=== PATIENT | female | born 2000 | race Two or more races ===

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

== ENCOUNTER 2020-05-26 09:23 | Inpatient (IN) | payer BC ==
[2020-05-26] MEDS ORDERED: Sodium Chloride 0.9% 10 ML Syringe FLUSH PRN (13:45)
[2020-05-26] MEDS ORDERED: Sodium Chloride 0.9% 10 ML SDV IV PRN (13:45)
[2020-05-26] MEDS ORDERED: Carboprost Tromethamine 250 MCG/1 ML Amp IM PRN (13:45)
[2020-05-26] MEDS ORDERED: Methylergonovine 0.2 MG/1 ML Amp IM PRN (13:45)
[2020-05-26] MEDS ORDERED: Tranexamic Acid 1,000 MG in Sodium Chloride 0.9% 100 ML IV PRN (13:45)
[2020-05-26] MEDS ORDERED: Butorphanol 1 MG/ML SDV IVPUSH PRN (13:45)
[2020-05-26] MEDS ORDERED: Sodium Chloride 0.9% 2.5 ML Syringe FLUSH PRN (13:45)
[2020-05-26] MEDS ORDERED: Water For Irrigation,Sterile 1,000 ML Container IRR PRN (13:45)
[2020-05-26] MEDS ORDERED: Misoprostol 200 MCG Tab PO PRN (13:45)
[2020-05-26] MEDS ORDERED: Lidocaine 1% 50 ML MDV INJECT PRN (13:45)
[2020-05-26] MEDS ORDERED: Oxytocin/0.9 % Sodium Chloride 30 UNIT/500 ML BAG IV SCH ×2 (13:45→14:00)
[2020-05-26] MEDS ORDERED: Nalbuphine 10 MG/1 ML Vial IVPUSH PRN (13:45)
[2020-05-26] MEDS ORDERED: Terbutaline 1 MG/ML SDV SUBCUT PRN (13:52)
[2020-05-26] MEDS: Misoprostol 25 MCG (1/4 of 100 MCG) Tab VAG PRN ×2 (15:00→20:15)
[2020-05-27] MEDS: Lactated Ringers 1,000 ML IV SCH ×2 (01:30→04:14)
[2020-05-27] MEDS ORDERED: fentaNYL 100 MCG/2 ML SDV ONE (03:50)
[2020-05-27] MEDS ORDERED: Ropivacaine HCl/PF 100 ML ONE (03:51)
--- NOTE | 2020-05-27 04:15 | PCM.PREANE ---
Preanesthetic Assessment - Anesthesia/Transfusion/Family Hx Anesthesia History: No Prior Anesthesia Family History of Anesthesia Reaction: No Transfusion History: No Prior Transfusion(s) Type of Transfusion Reactions: Reports: Unknown - Physical Assessment NPO Status Date: 05/27/20 NPO Status Time: 00:05 Height: 1.63 m Weight: 83.915 kg ASA Class: 2 - Lab Values: Laboratory Last Values COVID-19 (PRADEEP) NEGATIVE (NEGATIVE) 05/26/20 13:36 Blood Type O POSITIVE 05/26/20 13:25 Antibody Screen NEGATIVE 05/26/20 13:25 - Allergies Allergies/Adverse Reactions: Allergies Allergy/AdvReac Type Severity Reaction Status Date / Time Penicillins Allergy Rash Verified 05/26/20 13:51 - Acknowledgements Anesthesia Type Planned: Epidural Pt an Appropriate Candidate for the Planned Anesthesia: Yes Alternatives and Risks of Anesthesia Discussed w Pt/Guardian: Yes Pt/Guardian Understands and Agrees with Anesthesia Plan: Yes PreAnesthesia Questionnaire - Past Health History Medical/Surgical History: Denies Medical/Surgical History HEENT History: Reports: None Cardiovascular History: Reports: None Respiratory History: Reports: None Gastrointestinal History: Reports: None Genitourinary History: Reports: None SADDLE MAKER History: Reports: Musculoskeletal History: Reports: None Neurological History: Reports: None Psychiatric History: Reports: None Endocrine/Metabolic History: Reports: None Hematologic History: Reports: None Immunologic History: Reports: None Oncologic (Cancer) History: Reports: None Dermatologic History: Reports: None - Infectious Disease History Infectious Disease History: Reports: Chicken Pox - Past Surgical History Head Surgeries/Procedures: Reports: None HEENT Surgical History: Reports: None Cardiovascular Surgical History: Reports: None Respiratory Surgical History: Reports: None GI Surgical History: Reports: None Female Surgical History: Reports: Other (See Below) Other Female Surgeries/Procedures: ovarian cyst Endocrine Surgical History: Reports: None Neurological Surgical History: Reports: None Musculoskeletal Surgical History: Reports: None Oncologic Surgical History: Reports: None Dermatological Surgical History: Reports: None - SUBSTANCE USE Smoking Status *Q: Never Smoker Second Hand Smoke Exposure: Yes Recreational Drug Use History: No - HOME MEDS Home Medications: Home Meds No115/Iron/Folic Acid [ 19 Chewable Tablet] 1 tab PO DAILY 11/17/19 [History] - CURRENT (IN HOUSE) MEDS Current Meds: Current Medications Butorphanol Tartrate (Stadol) 1 mg IVPUSH Q1H PRN PRN Reason: Pain Last Admin: 05/27/20 03:24 Dose: 1 mg Documented by: Carboprost Tromethamine (Hemabate Ds) 250 mcg IM ASDIRECTED PRN PRN Reason: Post Hemorrhage Lactated Ringer's (Ringers, Lactated) 1,000 mls @ 150 mls/hr IV ASDIRECTED TANG Last Admin: 05/27/20 04:14 Dose: 150 mls/hr Documented by: Oxytocin/Sodium Chloride (Oxytocin 30 Unit/500 Ml-Ns) 30 unit in 500 mls @ 999 mls/hr IV TITRATE TANG Tranexamic Acid 1,000 mg/ (Sodium Chloride) 110 mls @ 660 mls/hr IV ONETIME PRN PRN Reason: Bleeding Oxytocin/Sodium Chloride (Oxytocin 30 Unit/500 Ml-Ns) 30 unit in 500 mls @ 2 mls/hr IV TITRATE TANG; Protocol Last Titration: 05/27/20 02:01 Dose: 4 munits/min, 4 mls/hr Documented by: Lidocaine HCl (Xylocaine 1%) 50 ml INJECT ONETIME PRN PRN Reason: Laceration repair Misoprostol (Cytotec) 200 mcg PO ONETIME PRN PRN Reason: Post Hemorrhage Misoprostol (Cytotec) 25 mcg VAG Q4H PRN PRN Reason: Cervical Ripening Last Admin: 05/26/20 20:15 Dose: 25 mcg Documented by: Nalbuphine HCl (Nubain) 10 mg IVPUSH Q1H PRN PRN Reason: Pain (severe 7-10) Sodium Chloride (Saline Flush) 10 ml FLUSH ASDIRECTED PRN PRN Reason: Keep Vein Open Sodium Chloride (Saline Flush) 2.5 ml FLUSH ASDIRECTED PRN PRN Reason: Keep Vein Open Sodium Chloride (Normal Saline) 10 ml IV ASDIRECTED PRN PRN Reason: IV Use Sterile Water (Sterile Water For Irrigation) 1,000 ml IRR ASDIRECTED PRN PRN Reason: delivery Terbutaline Sulfate (Brethine) 0.25 mg SUBCUT ASDIRECTED PRN PRN Reason: Tacysystole Discontinued Medications Fentanyl (Sublimaze) Confirm Administered Dose 100 mcg .ROUTE .STK-MED ONE Stop: 05/27/20 03:51 Ropivacaine (Naropin 0.2%) Confirm Administered Dose 100 mls @ as directed .ROUTE .[facility] Stop: 05/27/20 03:52
--- NOTE | 2020-05-27 04:18 | PCM.PRNOTE ---
- Free Text/Narrative Note: Anes Note Patient requests epidural for L&D. Sitting position, level L3-L4 midline approach. Sterile technique, chloraprep scrub to lumbar area. Sterile fenestrated drape applied. Epidural space easily achieved using SUKHJINDER technique. SUKHJINDER at 4 cm. Cath threaded 5 cm with ease. Cath secured a t 11 cm at skin using sterile clear adhesive dressing. Test 0402 3 cc 1.5% lido with epi negative. 0405 Load 10 cc 0.2% ropivicaine with 1 mcg cc fentanyl in slow divided doses. 0409 Pump started with 90 cc same solution. Rate is 8 cc hr with 6 cc q 20 min prn bolus. 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
[2020-05-27] MEDS ORDERED: Docusate Sodium 100 MG Cap PO PRN (09:47)
[2020-05-27] MEDS ORDERED: Witch Hazel Medicated Pads 40/Jar TOP PRN (09:47)
[2020-05-27] MEDS ORDERED: oxyCODONE 5 MG Tab PO PRN (09:47)
[2020-05-27] MEDS ORDERED: Lanolin 100% Cream 7 GM Tube TOP PRN (09:47)
[2020-05-27] MEDS ORDERED: Benzocaine/Menthol 20%-0.5% Spray 78 GM Cannister TOP PRN (09:47)
[2020-05-27] MEDS ORDERED: Bisacodyl 10 MG Supp RECTAL PRN (09:47)
--- NOTE | 2020-05-27 09:48 | PCM.DEL ---
<Lopez Looney - Last Filed: 05/27/20 09:43> L & D Note - General Info Date of Service: 05/27/20 Mother's Due Date: 06/16/20 (Was induced at this time due to onset of preeclampsia) - Delivery Note Labor: Induced by Oxytocin Cervical Ripening Method: Misoprostil, Oxytocin Delivery Outcome: Livebirth Delivery Method: Spontaneous Vaginal Delivery-Single Infant Delivery Mode: Spontaneous Presentation: Right Occiput Anterior (SCAR) Nuchal Cord: None Prep: Povidone-Iodine (Betadine Anesthesia Type: Epidural Amniotic Fluid Description: Clear Episiotomy Type: None Laceration: 1st Degree, Labial, Other (Small left labia minora tear, not repaired because it was hemostatic. ) Suture type: Vicryl Suture size: 2-0 Placenta: Intact, Spontaneous Cord: 3 Vessels Estimated Blood Loss: 500 Resuscitation Needed: No : Suctioned, Warmer Used Score 1 min: 7 Score 5 min: 9 Second Stage Interventions: Reports: Encouragement Given, Pushing Effectively Delivery Comments (Free Text/Narrative):: Baby came within about 10 pushes and placenta was delivered intact within two minutes thereafter. Did receive 800 mg of cytotec per rectum to aid with uterine tone/clamping. Baby delivered by Dr. Williams Sebastian, assisted by medical student (LOPEZ LOONEY). - Patient Data Weight - Most Recent: 83.915 kg Lab Results Last 24 Hours: Laboratory Results - last 24 hr 05/26/20 05/26/20 Range/Units 13:25 13:36 COVID-19 (PRADEEP) NEGATIVE (NEGATIVE) Blood Type O POSITIVE Antibody Screen NEGATIVE Med Orders - Current: Current Medications Butorphanol Tartrate (Stadol) 1 mg IVPUSH Q1H PRN PRN Reason: Pain Last Admin: 05/27/20 03:24 Dose: 1 mg Documented by: Carboprost Tromethamine (Hemabate Ds) 250 mcg IM ASDIRECTED PRN PRN Reason: Post Hemorrhage Lactated Ringer's (Ringers, Lactated) 1,000 mls @ 150 mls/hr IV ASDIRECTED TANG Last Admin: 05/27/20 04:14 Dose: 150 mls/hr Documented by: Oxytocin/Sodium Chloride (Oxytocin 30 Unit/500 Ml-Ns) 30 unit in 500 mls @ 999 mls/hr IV TITRATE TANG Tranexamic Acid 1,000 mg/ (Sodium Chloride) 110 mls @ 660 mls/hr IV ONETIME PRN PRN Reason: Bleeding Oxytocin/Sodium Chloride (Oxytocin 30 Unit/500 Ml-Ns) 30 unit in 500 mls @ 2 mls/hr IV TITRATE TANG; Protocol Last Titration: 05/27/20 08:23 Dose: 10 munits/min, 10 mls/hr Documented by: Lidocaine HCl (Xylocaine 1%) 50 ml INJECT ONETIME PRN PRN Reason: Laceration repair Misoprostol (Cytotec) 200 mcg PO ONETIME PRN PRN Reason: Post Hemorrhage Misoprostol (Cytotec) 25 mcg VAG Q4H PRN PRN Reason: Cervical Ripening Last Admin: 05/26/20 20:15 Dose: 25 mcg Documented by: Nalbuphine HCl (Nubain) 10 mg IVPUSH Q1H PRN PRN Reason: Pain (severe 7-10) Sodium Chloride (Saline Flush) 10 ml FLUSH ASDIRECTED PRN PRN Reason: Keep Vein Open Sodium Chloride (Saline Flush) 2.5 ml FLUSH ASDIRECTED PRN PRN Reason: Keep Vein Open Sodium Chloride (Normal Saline) 10 ml IV ASDIRECTED PRN PRN Reason: IV Use Sterile Water (Sterile Water For Irrigation) 1,000 ml IRR ASDIRECTED PRN PRN Reason: delivery Terbutaline Sulfate (Brethine) 0.25 mg SUBCUT ASDIRECTED PRN PRN Reason: Tacysystole Discontinued Medications Fentanyl (Sublimaze) Confirm Administered Dose 100 mcg .ROUTE .STK-MED ONE Stop: 05/27/20 03:51 Ropivacaine (Naropin 0.2%) Confirm Administered Dose 100 mls @ as directed .ROUTE .STK-MED ONE Stop: 05/27/20 03:52 <Jaz Kramer - Last Filed: 05/27/20 10:04> L & D Note - Delivery Note Placenta: Abnormal (delivered 45 seconds after delivery of baby, suspected abruption) Resuscitation Needed: Yes : Stimulated Delivery Comments (Free Text/Narrative):: Placenta delivered 45 seconds after delivery of baby. - General Info Date of Service: 05/27/20 - Patient Data Lab Results Last 24 Hours: Laboratory Results - last 24 hr 05/26/20 05/26/20 Range/Units 13:25 13:36 COVID-19 (PRADEEP) NEGATIVE (NEGATIVE) Blood Type O POSITIVE Antibody Screen NEGATIVE Med Orders - Current: Current Medications Acetaminophen (Tylenol Extra Strength) 1,000 mg PO Q6H PRN PRN Reason: Pain Benzocaine/Menthol (Dermoplast Pain Relief 20%-0.5% [place]) 78 gm TOP ASDIRECTED PRN PRN Reason: Perineal Comfort Measure Bisacodyl (Dulcolax) 10 mg RECTAL ONETIME PRN PRN Reason: Constipation Butorphanol Tartrate (Stadol) 1 mg IVPUSH Q1H PRN PRN Reason: Pain Last Admin: 05/27/20 03:24 Dose: 1 mg Documented by: Carboprost Tromethamine (Hemabate Ds) 250 mcg IM ASDIRECTED PRN PRN Reason: Post Hemorrhage Docusate Sodium (Colace) 100 mg PO BID PRN PRN Reason: Constipation Emollient Ointment (Lansinoh Hpa) 0 gm TOP ASDIRECTED PRN PRN Reason: Sore Nipples Lactated Ringer's (Ringers, Lactated) 1,000 mls @ 150 mls/hr IV ASDIRECTED TANG Last Admin: 05/27/20 04:14 Dose: 150 mls/hr Documented by: Oxytocin/Sodium Chloride (Oxytocin 30 Unit/500 Ml-Ns) 30 unit in 500 mls @ 999 mls/hr IV TITRATE TANG Tranexamic Acid 1,000 mg/ (Sodium Chloride) 110 mls @ 660 mls/hr IV ONETIME PRN PRN Reason: Bleeding Oxytocin/Sodium Chloride (Oxytocin 30 Unit/500 Ml-Ns) 30 unit in 500 mls @ 2 mls/hr IV TITRATE TANG; Protocol Last Titration: 05/27/20 08:23 Dose: 10 munits/min, 10 mls/hr Documented by: Ibuprofen (Motrin) 800 mg PO Q8H PRN PRN Reason: Pain Lidocaine HCl (Xylocaine 1%) 50 ml INJECT ONETIME PRN PRN Reason: Laceration repair Misoprostol (Cytotec) 200 mcg PO ONETIME PRN PRN Reason: Post Hemorrhage Last Admin: 05/27/20 09:38 Dose: 800 mcg Documented by: Misoprostol (Cytotec) 25 mcg VAG Q4H PRN PRN Reason: Cervical Ripening Last Admin: 05/26/20 20:15 Dose: 25 mcg Documented by: Nalbuphine HCl (Nubain) 10 mg IVPUSH Q1H PRN PRN Reason: Pain (severe 7-10) Oxycodone HCl (Oxycodone) 5 mg PO Q2H PRN PRN Reason: Pain Sodium Chloride (Saline Flush) 10 ml FLUSH ASDIRECTED PRN PRN Reason: Keep Vein Open Sodium Chloride (Saline Flush) 2.5 ml FLUSH ASDIRECTED PRN PRN Reason: Keep Vein Open Sodium Chloride (Normal Saline) 10 ml IV ASDIRECTED PRN PRN Reason: IV Use Sterile Water (Sterile Water For Irrigation) 1,000 ml IRR ASDIRECTED PRN PRN Reason: delivery Terbutaline Sulfate (Brethine) 0.25 mg SUBCUT ASDIRECTED PRN PRN Reason: Tacysystole Witch Marcy (Tucks) 1 pad TOP ASDIRECTED PRN PRN Reason: comfort care Discontinued Medications Fentanyl (Sublimaze) Confirm Administered Dose 100 mcg .ROUTE .STK-MED ONE Stop: 05/27/20 03:51 Ropivacaine (Naropin 0.2%) Confirm Administered Dose 100 mls @ as directed .ROUTE .[employer]-MED ONE Stop: 05/27/20 03:52 - Problem List & Annotations (1) Vaginal delivery SNOMED Code(s): 062774707 Code(s): O80 - ENCOUNTER FOR FULL-TERM UNCOMPLICATED DELIVERY Status: Acute Current Visit: Yes (2) Preeclampsia SNOMED Code(s): 501561583 Code(s): O14.90 - UNSPECIFIED PRE-ECLAMPSIA, UNSPECIFIED TRIMESTER Status: Acute Current Visit: Yes - Problem List Review Problem List Initiated/Reviewed/Updated: Yes - My Orders Last 24 Hours: My Active Orders 05/27/20 09:47 Notify Provider Vital Signs [RC] ASDIRECTED Acetaminophen [Tylenol Extra Strength] 1,000 mg PO Q6H PRN Benzocaine/Menthol [Dermoplast Pain Relief 20%-0.5% [place]] 78 gm TOP ASDIRECTED PRN Docusate Sodium [Colace] 100 mg PO BID PRN Ibuprofen [Motrin] 800 mg PO Q8H PRN Lanolin [Lansinoh HPA] See Dose Instructions TOP ASDIRECTED PRN bisacodyL [Dulcolax] 10 mg RECTAL ONETIME PRN oxyCODONE 5 mg PO Q2H PRN witch Marcy [Tucks] 1 pad TOP ASDIRECTED PRN Breast Pump [WOMSER] Per Unit Routine 05/27/20 09:48 Patient Status [ADT] Routine May Shower [RC] ASDIRECTED Up ad Macey [RC] ASDIRECTED Vital Signs [RC] PER UNIT ROUTINE Assess Lochia [WOMSER] Per Unit Routine Assess Uterine Involution [WOMSER] Per Unit Routine Peripheral IV Discontinue [OM.PC] Routine 05/27/20 09:50 Ice Therapy [OM.PC] Per Unit Routine Perineal Care [OM.PC] Per Unit Routine Sitz Bath [OM.PC] Per Unit Routine 05/27/20 09:51 Cooling Warming Measures [RC] ASDIRECTED 05/27/20 Lunch Regular Diet [DIET] 05/28/20 05:11 HEMOGLOBIN/HEMATOCRIT,HH [HEME] Timed - Assessment Assessment:: 20yo s/p at 37w1d - Plan Plan:: Admit to unit for routine care. Continue to monitor blood pressures due to preeclampsia. Placenta sent to pathology due to preeclampsia and suspected abruption. Will follow-up left ovarian cyst .
--- NOTE | 2020-05-27 12:30 | OR ---
SURGEON: Jaz Kramer MD DATE OF PROCEDURE: 05/27/2020 PREOPERATIVE DIAGNOSES: 1. A 20-year-old G2, P0-0-1-0, at 37 weeks 0 days' gestation. 2. Induction of labor for preeclampsia. 3. A 7 cm left ovarian cyst. 4. Left ventricle echogenic focus with negative quad screen. 5. GBS negative. POSTOPERATIVE DIAGNOSES: 1. A 20-year-old G2, P1-0-1-1, status post spontaneous vaginal delivery at 37 and 1. 2. Induction of labor for preeclampsia. 3. Left ovarian cyst. 4. Left ventricle echogenic focus with negative quad screen. 5. GBS negative. PROCEDURE: Spontaneous vaginal delivery and repair of first-degree perineal laceration. CONSTRUCTION LABORER: Lopez Looney, medical student. ANESTHESIA: Epidural. ESTIMATED BLOOD LOSS: 500 mL. MEDICATIONS: 800 mcg of misoprostol. FINDINGS: Live male infant in cephalic presentation. scores of 7 and 9 at one and five minutes respectively. Weight 2870 g. Placenta delivered intact with 3- vessel cord 45 seconds after delivery of baby with suspected abruption. First- degree perineal laceration along with left labial laceration. INDICATIONS: This is a 20-year-old G2, P0-0-1-0, who presented at 37 weeks 0 days' gestation for induction of labor due to preeclampsia. Upon presentation, her cervix was found to be 1 to 2 cm dilated. Induction of labor was begun with Cytotec. Approximately 3 cm dilated. The patient was shirley, and Pitocin was started. At 4 cm dilated, she received an epidural for pain control. She progressed to complete cervical dilation and began pushing. I was called to the room after an 11-minute deceleration to the 90s. DESCRIPTION OF PROCEDURE: I arrived to the room with heart tones in the 150s and having been recovered after placing the patient in the left lateral position. Artificial rupture of membranes occurred with clear fluid noted. Over the next 5 contractions, the patient pushed and delivered a live male infant. The head was delivered followed quickly by the shoulders and the remainder of the body. The infant was placed on the maternal abdomen. After approximately 45 seconds, the placenta then delivered spontaneously intact with a 3-vessel cord. At 60 seconds post delivery, the cord was clamped and cut. The perineum was inspected, and a first-degree perineal and a left labial laceration were noted. The perineal laceration was repaired to anatomy and hemostasis with 2-0 Vicryl suture. The left labial laceration was hemostatic without repair. Uterine atony was noted in the lower uterine segment. A bimanual exam was performed to evacuate clot from the uterus. 800 mcg of misoprostol was placed in the rectum. Subsequent increase in uterine tone was noted with decreased bleeding. The patient and infant tolerated the delivery well. [id number] / MODL /[id number] MTDD
[2020-05-27] MEDS: Acetaminophen 500 MG Tab PO PRN ×2 (13:13→18:45)
[2020-05-27] MEDS: Ibuprofen 800 MG Tab PO PRN ×2 (13:13→21:01)
[2020-05-28] MEDS: Acetaminophen 500 MG Tab PO PRN (06:02)
--- NOTE | 2020-05-28 07:16 | PCM.PNPP ---
<Lopez Looney - Last Filed: 05/28/20 07:11> - General Info Date of Service: 05/28/20 Functional Status: Reports: Pain Controlled, Tolerating Diet, Ambulating, Urinating - Review of Systems General: Reports: No Symptoms, Other (She is in no pain, denies fever or chills. Hgb and Hct slightly decreased to 10.5 and 31.7) HEENT: Reports: No Symptoms Pulmonary: Reports: No Symptoms, Other (Denies shortness of breath, cough or other symptoms) Cardiovascular: Reports: No Symptoms Gastrointestinal: Reports: No Symptoms Genitourinary: Reports: No Symptoms Musculoskeletal: Reports: No Symptoms Skin: Reports: No Symptoms Neurological: Reports: No Symptoms Psychiatric: Reports: No Symptoms - General Info Date of Service: 05/28/20 - Patient Data Vital Signs - Most Recent: Last Vital Signs Temp 36.6 C 05/28/20 04:00 Pulse 72 05/28/20 04:00 Resp 16 05/28/20 04:00 BP 133/74 05/28/20 04:00 Pulse Ox 98 05/28/20 04:00 Weight - Most Recent: 83.915 kg Lab Results - Last 24 Hours: Laboratory Results - last 24 hr 05/28/20 Range/Units 05:20 Hgb 10.5 L (12.0-16.0) g/dL Hct 31.7 L (36.0-46.0) % Med Orders - Current: Current Medications Acetaminophen (Tylenol Extra Strength) 1,000 mg PO Q6H PRN PRN Reason: Pain Last Admin: 05/28/20 06:02 Dose: 1,000 mg Documented by: Benzocaine/Menthol (Dermoplast Pain Relief 20%-0.5% [place]) 78 gm TOP ASDIRECTED PRN PRN Reason: Perineal Comfort Measure Last Admin: 05/27/20 13:15 Dose: 1 canister Documented by: Bisacodyl (Dulcolax) 10 mg RECTAL ONETIME PRN PRN Reason: Constipation Butorphanol Tartrate (Stadol) 1 mg IVPUSH Q1H PRN PRN Reason: Pain Last Admin: 05/27/20 03:24 Dose: 1 mg Documented by: Carboprost Tromethamine (Hemabate Ds) 250 mcg IM ASDIRECTED PRN PRN Reason: Post Hemorrhage Docusate Sodium (Colace) 100 mg PO BID PRN PRN Reason: Constipation Last Admin: 05/27/20 13:13 Dose: 100 mg Documented by: Emollient Ointment (Lansinoh Hpa) 0 gm TOP ASDIRECTED PRN PRN Reason: Sore Nipples Last Admin: 05/27/20 13:14 Dose: 7 gm Documented by: Lactated Ringer's (Ringers, Lactated) 1,000 mls @ 150 mls/hr IV ASDIRECTED TANG Last Admin: 05/27/20 04:14 Dose: 150 mls/hr Documented by: Oxytocin/Sodium Chloride (Oxytocin 30 Unit/500 Ml-Ns) 30 unit in 500 mls @ 999 mls/hr IV TITRATE TANG Tranexamic Acid 1,000 mg/ (Sodium Chloride) 110 mls @ 660 mls/hr IV ONETIME PRN PRN Reason: Bleeding Oxytocin/Sodium Chloride (Oxytocin 30 Unit/500 Ml-Ns) 30 unit in 500 mls @ 2 mls/hr IV TITRATE TANG; Protocol Last Titration: 05/27/20 08:23 Dose: 10 munits/min, 10 mls/hr Documented by: Ibuprofen (Motrin) 800 mg PO Q8H PRN PRN Reason: Pain Last Admin: 05/27/20 21:01 Dose: 800 mg Documented by: Lidocaine HCl (Xylocaine 1%) 50 ml INJECT ONETIME PRN PRN Reason: Laceration repair Misoprostol (Cytotec) 200 mcg PO ONETIME PRN PRN Reason: Post Hemorrhage Last Admin: 05/27/20 09:38 Dose: 800 mcg Documented by: Misoprostol (Cytotec) 25 mcg VAG Q4H PRN PRN Reason: Cervical Ripening Last Admin: 05/26/20 20:15 Dose: 25 mcg Documented by: Nalbuphine HCl (Nubain) 10 mg IVPUSH Q1H PRN PRN Reason: Pain (severe 7-10) Oxycodone HCl (Oxycodone) 5 mg PO Q2H PRN PRN Reason: Pain Sodium Chloride (Saline Flush) 10 ml FLUSH ASDIRECTED PRN PRN Reason: Keep Vein Open Sodium Chloride (Saline Flush) 2.5 ml FLUSH ASDIRECTED PRN PRN Reason: Keep Vein Open Sodium Chloride (Normal Saline) 10 ml IV ASDIRECTED PRN PRN Reason: IV Use Sterile Water (Sterile Water For Irrigation) 1,000 ml IRR ASDIRECTED PRN PRN Reason: delivery Terbutaline Sulfate (Brethine) 0.25 mg SUBCUT ASDIRECTED PRN PRN Reason: Tacysystole Gregorio Vidal (Tucks) 1 pad TOP ASDIRECTED PRN PRN Reason: comfort care Last Admin: 05/27/20 13:14 Dose: 1 tub Documented by: Discontinued Medications Fentanyl (Sublimaze) Confirm Administered Dose 100 mcg .ROUTE .STK-MED ONE Stop: 05/27/20 03:51 Ropivacaine (Naropin 0.2%) Confirm Administered Dose 100 mls @ as directed .ROUTE .STK-MED ONE Stop: 05/27/20 03:52 - Interaction Disposition, : to Nursery Infant Feeding: Bottle Fed Support Person: - Recovery Exam Fundal Tone: Firm Fundal Level: 2 Fingerbreadths Below Umbilicus Fundal Placement: Midline Lochia Amount: Scant Lochia Color: Rubra/Red Perineum Description: Other (see below) Other Perinuem Description: Left labial Episiotomy/Laceration: Approximated Bladder Status: Voiding Urinary Elimination: Voided - Problem List Review Problem List Initiated/Reviewed/Updated: Yes - Assessment Assessment:: 20yo s/p at 37w1d - Plan Plan:: -Continue routine care. -Continue to monitor blood pressures due to preeclampsia. -Placenta sent to pathology due to preeclampsia and suspected abruption. -Will follow-up left ovarian cyst . -Prepare for discharge to home today. <Jaz Kramer - Last Filed: 05/28/20 08:11> - General Info Subjective Update: Patient denies preeclampisa symptoms. Bleeding light. Pain well controlled. - Patient Data Vital Signs - Most Recent: Last Vital Signs Temp 36.0 C L 05/28/20 07:36 Pulse 66 05/28/20 07:36 Resp 12 05/28/20 07:36 BP 135/89 05/28/20 07:36 Pulse Ox 95 05/28/20 07:36 Lab Results - Last 24 Hours: Laboratory Results - last 24 hr 05/28/20 Range/Units 05:20 Hgb 10.5 L (12.0-16.0) g/dL Hct 31.7 L (36.0-46.0) % Med Orders - Current: Current Medications Acetaminophen (Tylenol Extra Strength) 1,000 mg PO Q6H PRN PRN Reason: Pain Last Admin: 05/28/20 06:02 Dose: 1,000 mg Documented by: Benzocaine/Menthol (Dermoplast Pain Relief 20%-0.5% [place]) 78 gm TOP ASDIRECTED PRN PRN Reason: Perineal Comfort Measure Last Admin: 05/27/20 13:15 Dose: 1 canister Documented by: Bisacodyl (Dulcolax) 10 mg RECTAL ONETIME PRN PRN Reason: Constipation Butorphanol Tartrate (Stadol) 1 mg IVPUSH Q1H PRN PRN Reason: Pain Last Admin: 05/27/20 03:24 Dose: 1 mg Documented by: Carboprost Tromethamine (Hemabate Ds) 250 mcg IM ASDIRECTED PRN PRN Reason: Post Hemorrhage Docusate Sodium (Colace) 100 mg PO BID PRN PRN Reason: Constipation Last Admin: 05/27/20 13:13 Dose: 100 mg Documented by: Emollient Ointment (Lansinoh Hpa) 0 gm TOP ASDIRECTED PRN PRN Reason: Sore Nipples Last Admin: 05/27/20 13:14 Dose: 7 gm Documented by: Lactated Ringer's (Ringers, Lactated) 1,000 mls @ 150 mls/hr IV ASDIRECTED TANG Last Admin: 05/27/20 04:14 Dose: 150 mls/hr Documented by: Oxytocin/Sodium Chloride (Oxytocin 30 Unit/500 Ml-Ns) 30 unit in 500 mls @ 999 mls/hr IV TITRATE TANG Tranexamic Acid 1,000 mg/ (Sodium Chloride) 110 mls @ 660 mls/hr IV ONETIME PRN PRN Reason: Bleeding Oxytocin/Sodium Chloride (Oxytocin 30 Unit/500 Ml-Ns) 30 unit in 500 mls @ 2 mls/hr IV TITRATE TANG; Protocol Last Titration: 05/27/20 08:23 Dose: 10 munits/min, 10 mls/hr Documented by: Ibuprofen (Motrin) 800 mg PO Q8H PRN PRN Reason: Pain Last Admin: 05/27/20 21:01 Dose: 800 mg Documented by: Lidocaine HCl (Xylocaine 1%) 50 ml INJECT ONETIME PRN PRN Reason: Laceration repair Misoprostol (Cytotec) 200 mcg PO ONETIME PRN PRN Reason: Post Hemorrhage Last Admin: 05/27/20 09:38 Dose: 800 mcg Documented by: Misoprostol (Cytotec) 25 mcg VAG Q4H PRN PRN Reason: Cervical Ripening Last Admin: 05/26/20 20:15 Dose: 25 mcg Documented by: Nalbuphine HCl (Nubain) 10 mg IVPUSH Q1H PRN PRN Reason: Pain (severe 7-10) Oxycodone HCl (Oxycodone) 5 mg PO Q2H PRN PRN Reason: Pain Sodium Chloride (Saline Flush) 10 ml FLUSH ASDIRECTED PRN PRN Reason: Keep Vein Open Sodium Chloride (Saline Flush) 2.5 ml FLUSH ASDIRECTED PRN PRN Reason: Keep Vein Open Sodium Chloride (Normal Saline) 10 ml IV ASDIRECTED PRN PRN Reason: IV Use Sterile Water (Sterile Water For Irrigation) 1,000 ml IRR ASDIRECTED PRN PRN Reason: delivery Terbutaline Sulfate (Brethine) 0.25 mg SUBCUT ASDIRECTED PRN PRN Reason: Tacysystole Witch Marcy (Tucks) 1 pad TOP ASDIRECTED PRN PRN Reason: comfort care Last Admin: 05/27/20 13:14 Dose: 1 tub Documented by: Discontinued Medications Fentanyl (Sublimaze) Confirm Administered Dose 100 mcg .ROUTE .STK-MED ONE Stop: 05/27/20 03:51 Ropivacaine (Naropin 0.2%) Confirm Administered Dose 100 mls @ as directed .ROUTE .STK-MED ONE Stop: 05/27/20 03:52 - Infant Interaction Feeding: Breastfed Infant; Nursed Well - Exam General: Alert, Oriented Neck: Supple Lungs: Normal Respiratory Effort GI/Abdominal Exam: Soft, Non-Tender Extremities: No Pedal Edema Skin: Warm, Dry, Intact Neurological: No New Focal Deficit Psy/Mental Status: Alert, Normal Affect, Normal Mood - Problem List & Annotations (1) Vaginal delivery SNOMED Code(s): 654280004 Code(s): O80 - ENCOUNTER FOR FULL-TERM UNCOMPLICATED DELIVERY Status: Acute Current Visit: Yes (2) Preeclampsia SNOMED Code(s): 158904959 Code(s): O14.90 - UNSPECIFIED PRE-ECLAMPSIA, UNSPECIFIED TRIMESTER Status: Acute Current Visit: Yes - My Orders Last 24 Hours: My Active Orders 05/27/20 09:47 Acetaminophen [Tylenol Extra Strength] 1,000 mg PO Q6H PRN Benzocaine/Menthol [Dermoplast Pain Relief 20%-0.5% [place]] 78 gm TOP ASDIRECTED PRN Docusate Sodium [Colace] 100 mg PO BID PRN Ibuprofen [Motrin] 800 mg PO Q8H PRN Lanolin [Lansinoh HPA] See Dose Instructions TOP ASDIRECTED PRN bisacodyL [Dulcolax] 10 mg RECTAL ONETIME PRN oxyCODONE 5 mg PO Q2H PRN witch Marcy [Tucks] 1 pad TOP ASDIRECTED PRN Breast Pump [WOMSER] Per Unit Routine 05/27/20 09:48 Patient Status [ADT] Routine Vital Signs [RC] PER UNIT ROUTINE Assess Lochia [WOMSER] Per Unit Routine Assess Uterine Involution [WOMSER] Per Unit Routine Peripheral IV Discontinue [OM.PC] Routine 05/27/20 09:50 Ice Therapy [OM.PC] Per Unit Routine Perineal Care [OM.PC] Per Unit Routine Sitz Bath [OM.PC] Per Unit Routine 05/27/20 Lunch Regular Diet [DIET] - Plan Plan:: I have reviewed and agree with the above. Blood pressures normal since delivery, denies preeclampsia symptoms. Plan for discharge home today. BP check this week in clinic. Reviewed discharge instructions/precautions.
--- NOTE | 2020-05-28 07:47 | PCM48HPAN ---
Post Anesthesia Note - EVALUATION WITHIN 48HRS OF ANESTHETIC Vital Signs in Normal Range: Yes Patient Participated in Evaluation: Yes Respiratory Function Stable: Yes Airway Patent: Yes Cardiovascular Function Stable: Yes Hydration Status Stable: Yes Pain Control Satisfactory: Yes Nausea and Vomiting Control Satisfactory: Yes Mental Status Recovered: Yes Vital Signs: Last Vital Signs Temp 36.0 C L 05/28/20 07:36 Pulse 66 05/28/20 07:36 Resp 12 05/28/20 07:36 BP 135/89 05/28/20 07:36 Pulse Ox 95 05/28/20 07:36
[2020-05-28] MEDS: Ibuprofen 800 MG Tab PO PRN (11:50)
== END 2020-05-28 12:20 | disposition home or self-care (01) | DRG 560 ==
LOC: MW.OB 09:23 → OBSVTOIN 05-27 09:23 → MW.OB 05-27 14:09
PROVIDERS: ADMIT Obstetrics & Gynecology; ATTEND Obstetrics & Gynecology
PROC: 3E0R3BZ Introduction of Anesthetic Agent into Spinal Canal, Percutaneous Approach (ICD-10-PCS; 2020-05-26)
PROC: 10E0XZZ Delivery of Products of Conception, External Approach (ICD-10-PCS; principal; 2020-05-27)
PROC: 10907ZC Drainage of Amniotic Fluid, Therapeutic from Products of Conception, Via Natural or Artificial Opening (ICD-10-PCS; 2020-05-27)
PROC: 3E033VJ Introduction of Other Hormone into Peripheral Vein, Percutaneous Approach (ICD-10-PCS; 2020-05-27)
PROC: 3E0P7VZ Introduction of Hormone into Female Reproductive, Via Natural or Artificial Opening (ICD-10-PCS; 2020-05-27)
PROC: 0HQ9XZZ Repair Perineum Skin, External Approach (ICD-10-PCS; 2020-05-27)
PROC: 4A1HXCZ Monitoring of Products of Conception, Cardiac Rate, External Approach (ICD-10-PCS; 2020-05-27)
DX: O14.04 Mild to moderate pre-eclampsia, complicating childbirth (principal); Z3A.37 37 weeks gestation of pregnancy; Z37.0 Single live birth; O70.0 First degree perineal laceration during delivery; O76 Abnormality in fetal heart rate and rhythm complicating labor and delivery; O99.12 Other diseases of the blood and blood-forming organs and certain disorders involving the immune mechanism complicating childbirth; D69.6 Thrombocytopenia, unspecified; Z20.828 Contact with and (suspected) exposure to other viral communicable diseases
CPT/HCPCS: 36415; 51702; 59025; 59409; 85014; 85018; 86592; 86850; 86900; 86901; A9270-GY; J0595; J2590; J2795; J3010; J7120; U0002